=== PATIENT | female | born 1965 | race Caucasian/White ===

== ENCOUNTER 2021-10-26 10:52 | Emergency (ER) | payer OTHER, MEDICAID, SELFPAY ==
[2021-10-26] VITALS (7 sets, daily range): BP systolic 184–190; BP diastolic 84; PULSE 56–71; RESP 13–42; TEMP 36.2; O2SAT 96–97; BMI 27.9
--- NOTE | 2021-10-26 11:23 | DI.RAD.S_ITS ---
PROCEDURE: XR CHEST 1V INDICATIONS: chest pain TECHNIQUE: One view of the chest was acquired. COMPARISON: None. FINDINGS: Surgical changes and devices: An intact appearing herniation priyank can be seen. Lungs and pleura: Lungs are clear. No pleural effusions or pneumothorax. Mediastinum: The cardiac contours are within normal limits. The aorta demonstrates calcification and tortuosity. Bones and chest wall: No suspicious bony lesions. Age-appropriate bony degenerative changes are seen. Overlying soft tissues appear unremarkable. IMPRESSION: No acute cardiopulmonary process is seen. Postoperative and degenerative changes are seen. Dictated by: Zenon Herbert M.D. on 10/26/2021 at 10:40 Approved by: Zenon Herbert M.D. on 10/26/2021 at 10:41
--- NOTE | 2021-10-26 11:30 | ED_ITS ---
HPI - Chest Pain General Chief Complaint: Chest Pain Stated Complaint: blood pressure feels high, hx of heart disease Time Seen by Provider: 10/26/21 11:23 Source: patient Mode of arrival: Ambulatory Limitations: no limitations History of Present Illness HPI narrative: Patient is a 56-year-old female who is here for evaluation of chest discomfort and left arm discomfort. States it has been going on for the past 4 days. Has been consistent for the past 4 days. Not worse with palpation movement or breathing. No coughing. She does have a history of heart failure and high blood pressure. She is on metoprolol. She has been taking her medications as directed. She does have lower extremity swelling with this is not new. Abdominal swelling but this is not new. No changes in her respiratory status. Related Data Allergies Allergy/AdvReac Type Severity Reaction Status Date / Time aspirin Allergy Verified 10/26/21 11:16 Sulfa (Sulfonamide Allergy Verified 10/26/21 11:16 Antibiotics) Review of Systems Constitutional Constitutional: Reports system reviewed and no additional complaints, except as documented Cardiovascular Cardiovascular: Reports as per HPI and Reports system reviewed and no additional complaints, except as documented Respiratory Respiratory: Reports as per HPI and Reports system reviewed and no additional complaints, except as documented Gastrointestinal Gastrointestinal: Reports system reviewed and no additional complaints, except as documented Musculoskeletal Musculoskeletal: Reports system reviewed and no additional complaints, except as documented Integumentary/Breasts Skin/Breast: Reports system reviewed and no additional complaints, except as documented Neurologic Neurologic: Reports system reviewed and no additional complaints, except as documented Hematologic/Lymphatic On Anticoagulants: No Allergic/Immunologic Allergic/Immunologic: Reports system reviewed and no additional complaints, except as documented Patient History Medical History Congestive heart failure Social History Smoking Status: Never smoker Smoking Status: Never smoker Substance Use Type: does not use Exam Initial Vital Signs Initial Vital Signs: Vital Signs Pulse Rate 70 10/26/21 11:09 Blood Pressure 190/84 H 10/26/21 11:09 Pulse Oximetry 96 10/26/21 11:09 HENMT Head: normal to inspection and normocephalic Resp Effort & Inspection: normal respiratory effort Auscultation: clear to auscultation bilaterally Cardio Rate: regular rate Rhythm: regular rhythm GI Inspection: normal to inspection Palpation: soft and No tender Skin General: no rashes or lesions noted Neuro General: patient alert, patient awake and moves all extremities Extrem General: normal to inspection and capillary refill normal Psych Appearance: grossly normal and well kempt Scores HEART Score Heart Score history: Slightly Suspicious Heart Score EKG: Non-Specific repolarization disturbance Heart Score Age: 45-64 years old Heart Score risk factors: 1-2 risk factors Heart Score troponin: < or = to normal limit Heart Score Total: 3 Course Orders Ordered: ED Orders 10/26/21 11:20 Complete Blood Count AUTO DIFF Stat Comprehensive Metabolic Panel Stat Lipase Stat Magnesium Stat NT-proBNP (BNP-Adult 18+) Stat Partial Thromboplastin Time Stat Prothrombin Time INR Stat Troponin & CK Cardiac Panel Stat 10/26/21 11:23 XR chest 1V Stat EKG-12 Lead Stat 10/26/21 11:25 COVID19 -Nasal swab/Pre-Proc Stat Vital Signs Vital signs: Vital Signs - 8 hr 10/26/21 11:09 10/26/21 11:16 10/26/21 11:30 Temperature 97.1 F L Pulse Rate 70 71 61 Respiratory Rate 22 19 Blood Pressure 190/84 H 190/84 H Pulse Oximetry 96 96 96 MDM - Chest Pain Lab Data Attestation: I reviewed the patient's lab results. Result diagrams: 10/26/21 11:20 10/26/21 11:20 Labs: Lab Results 10/26/21 10/26/21 10/26/21 Range/Units 11:20 11:20 11:20 WBC 8.6 (4.5-11.0) X10^3/uL RBC 4.59 (4.0-5.2) X10^6/uL Hgb 11.6 L (12.0-16.0) g/dL Hct 36.0 (36-46) % MCV 78.5 L (80-100) fL MCH 25.3 L (26-34) PG MCHC 32.2 (30-36) % RDW 17.2 H (11.6-14.8) % Plt Count 244 (150-400) X10^3/uL Neut % (Auto) 62.6 (50-75) % Lymph % (Auto) 31.8 (25-40) % [place] % (Auto) 3.5 (3-14) % Eos % (Auto) 1.2 L (2-4) % Baso % (Auto) 0.9 (0-2) % Neut # (Auto) 5400 (6667-3435) /uL Lymph # (Auto) 2700 (5643-3081) /uL [place] # (Auto) 300 (0-900) /uL Eos # (Auto) 100 (0-450) /uL Baso # (Auto) 100 (0-100) /uL Sodium 142 (137-145) mmol/L Potassium 4.5 (3.4-5.1) mmol/L Chloride 109 H (98-107) mmol/L Carbon Dioxide 27 (22-32) mmol/L BUN 13 (7-17) mg/dL Creatinine 0.93 (0.52-1.04) mg/dL Estimated GFR > 60.0 (>60) mL/min BUN/Creatinine Ratio 14.0 (6-22) Glucose 99 (70-100) mg/dL Calcium 9.5 (8.4-10.2) mg/dL Magnesium 2.2 (1.6-2.3) mg/dL Total Bilirubin 0.6 (0.2-1.3) mg/dL AST 23 (14-36) IU/L ALT 11 (<35) IU/L Alkaline Phosphatase 198 H (38-126) U/L Total Creatine Kinase 27 L (30-135) U/L CK-MB (CK-2) TNP CK-MB (CK-2) Rel Index TNP Troponin I < 0.012 (0.01-0.034) ng/mL NT-Pro-B Natriuret Pep 675 H (<125) pg/mL Total Protein 8.3 H (6.3-8.2) g/dL Albumin 4.0 (3.5-5.0) g/dL Globulin 4.3 H (1.7-4.1) g/dL Albumin/Globulin Ratio 0.9 L (1.0-2.8) Lipase 37 (23-300) U/L SARS-CoV-2 (PCR) (Negative) 10/26/21 Range/Units 11:25 WBC (4.5-11.0) X10^3/uL RBC (4.0-5.2) X10^6/uL Hgb (12.0-16.0) g/dL Hct (36-46) % MCV (80-100) fL MCH (26-34) PG MCHC (30-36) % RDW (11.6-14.8) % Plt Count (150-400) X10^3/uL Neut % (Auto) (50-75) % Lymph % (Auto) (25-40) % [place] % (Auto) (3-14) % Eos % (Auto) (2-4) % Baso % (Auto) (0-2) % Neut # (Auto) (3870-0608) /uL Lymph # (Auto) (9658-0137) /uL [place] # (Auto) (0-900) /uL Eos # (Auto) (0-450) /uL Baso # (Auto) (0-100) /uL Sodium (137-145) mmol/L Potassium (3.4-5.1) mmol/L Chloride (98-107) mmol/L Carbon Dioxide (22-32) mmol/L BUN (7-17) mg/dL Creatinine (0.52-1.04) mg/dL Estimated GFR (>60) mL/min BUN/Creatinine Ratio (6-22) Glucose (70-100) mg/dL Calcium (8.4-10.2) mg/dL Magnesium (1.6-2.3) mg/dL Total Bilirubin (0.2-1.3) mg/dL AST (14-36) IU/L ALT (<35) IU/L Alkaline Phosphatase (38-126) U/L Total Creatine Kinase (30-135) U/L CK-MB (CK-2) CK-MB (CK-2) Rel Index Troponin I (0.01-0.034) ng/mL NT-Pro-B Natriuret Pep (<125) pg/mL Total Protein (6.3-8.2) g/dL Albumin (3.5-5.0) g/dL Globulin (1.7-4.1) g/dL Albumin/Globulin Ratio (1.0-2.8) Lipase (23-300) U/L SARS-CoV-2 (PCR) Negative (Negative) Imaging Data Chest x-ray: Radiologist's Impression: [address] [id number] XRay Report Signed Patient: Shilpi Preston MR#: [id number] : 1965 Acct:[id number] Age/Sex: 56 / F Date of Service: 10/26/21 Loc: ED Accession Number: [id number] ?? Procedure: XR chest 1V Ordering Provider: Paul Llamas D.O. PROCEDURE:? XR CHEST 1V ? INDICATIONS:? chest pain ? TECHNIQUE:? One view of the chest was acquired.? ? COMPARISON:? None. ? FINDINGS:? ? Surgical changes and devices:? An intact appearing herniation priyank can be seen. ? Lungs and pleura:? Lungs are clear.? No pleural effusions or pneumothorax.? ? Mediastinum:? The cardiac contours are within normal limits. The aorta demons trates calcification and tortuosity. ? Bones and chest wall:? No suspicious bony lesions.? Age-appropriate bony degenerative changes are seen.? Overlying soft tissues appear unremarkable.? IMPRESSION:? ? No acute cardiopulmonary process is seen.? ? Postoperative and degenerative changes are seen.? ? ? Dictated by: Zenon Herbert M.D. on 10/26/2021 at 10:40 ? ? Approved by: Zenon Herbert M.D. on 10/26/2021 at 10:41 ECG Data Attestation: I personally reviewed and interpreted this ECG as follows: Interpretation: Sinus rhythm Ventricular rate is 66 Normal axis Normal QRS LVH Nonspecific ST T wave changes MDM Narrative Medical decision making narrative: Labs unremarkable. Troponin negative in patient has had symptoms for several days. Chest x-ray is unremarkable. EKG is unremarkable. She is a low risk h eart score. We did discuss taking her blood pressure at home. We discussed contacting her primary doctor to discuss potentially starting medications. She was given return precautions and follow-up instructions. She did expressed understanding. Discharge Plan Departure Patient Disposition: Home Clinical Impression: Atypical chest pain, Hypertension Instructions: Essential Hypertension, DI for Atypical Chest Pain Activity Restrictions/Additional Instructions: I recommend you continue to take all of your medications as directed. Purchase a blood pressure cuff and take your blood pressure at home like we discussed. Take these numbers 2 your primary care doctor to discuss starting any medications. Return to the emergency department for any new or worsening symptoms.
[2021-10-26 11:50] LABS: Add Manual Diff / Slide Review NO; Basophils Absolute Auto 100 /uL (0-100); Basophils Percent Auto 0.9 % (0-2); Eosinophils Absolute Auto 100 /uL (0-450); Eosinophils Percent Auto 1.2 % (2-4); Hemoglobin 11.6 g/dL (12.0-16.0); Lymphocytes Absolute Auto 2700 /uL (1100-4500); Lymphocytes Percent Auto 31.8 % (25-40); Mean Corpuscular HGB Conc 32.2 % (30-36); Mean Corpuscular Hemoglobin 25.3 PG (26-34); Mean Corpuscular Volume 78.5 fL (80-100); Monocytes Absolute Auto 300 /uL (0-900); Monocytes Percent Auto 3.5 % (3-14); Neutrophils Absolute Auto 5400 /uL (1500-7000); Neutrophils Percent Auto 62.6 % (50-75); Platelet Count 244 X10^3/uL (150-400); Red Blood Cell Count 4.59 X10^6/uL (4.0-5.2); Red Cell Distribution Width 17.2 % (11.6-14.8); White Blood Cell Count 8.6 X10^3/uL (4.5-11.0)
[2021-10-26 12:11] LABS: COVID19 -Nasal RAPID Negative (Negative)
[2021-10-26 12:17] LABS: Alanine Aminotransferase 11 IU/L (<35); Albumin Globulin Ratio 0.9 (1.0-2.8); Alkaline Phosphatase 198 U/L (38-126); Aspartate Aminotransferase 23 IU/L (14-36); Bilirubin Total 0.6 mg/dL (0.2-1.3); Blood Urea Nitrogen 13 mg/dL (7-17); Calcium 9.5 mg/dL (8.4-10.2); Carbon Dioxide 27 mmol/L (22-32); Chloride 109 mmol/L (98-107); Creatine Kinase 27 U/L (30-135); Estimated Glomerular Filt Rate > 60.0 mL/min (>60); Globulin 4.3 g/dL (1.7-4.1); Glucose 99 mg/dL (70-100); HEMOLYSIS 23 (0-50); Lipase 37 U/L (23-300); Magnesium 2.2 mg/dL (1.6-2.3); Potassium 4.5 mmol/L (3.4-5.1); Sodium 142 mmol/L (137-145); Total Protein 8.3 g/dL (6.3-8.2)
[2021-10-26 12:29] LABS: Troponin I < 0.012 ng/mL (0.01-0.034)
[2021-10-26 12:50] LABS: NT-proBNP (BNP-Adult 18+) 675 pg/mL (<125)
[2021-10-26 14:55] LABS: INR 1.2 (0.9-1.3); Prothrombin Time 13.6 SECONDS (10.1-12.7)
[2021-10-26 14:58] LABS: PTT Partial Thromboplastin Tim 40 SECONDS (26.4-36.2)
== END 2021-10-26 13:30 | disposition home or self-care (01) ==
PROVIDERS: Emergency Provider Emergency Medicine
DX: R07.89 Other chest pain (principal); I10 Essential (primary) hypertension; Z20.822 Contact with and (suspected) exposure to COVID-19
CPT/HCPCS: 36415; 71045; 80053; 82550; 83690; 83735; 83880; 84484; 85025; 85610; 85730; 87635; 93005; 93010; 99284; C9803

== ENCOUNTER → 2022-01-13 13:39 | Outpatient (CLI) | payer OTHER, MEDICAID, SELFPAY ==
[2022-01-13 16:35] LABS: BUN Creatinine Ratio 15.6 (6-22); Blood Urea Nitrogen 15 mg/dL (7-17); Calcium 8.8 mg/dL (8.4-10.2); Carbon Dioxide 28 mmol/L (22-32); Chloride 105 mmol/L (98-107); Estimated Glomerular Filt Rate 59.7 mL/min (>60); Glucose 93 mg/dL (70-100); HEMOLYSIS < 15 (0-50); Sodium 139 mmol/L (137-145)
== END ==
PROVIDERS: Referring Provider Internal Medicine Cardiovascular Disease; Visit Provider Internal Medicine Cardiovascular Disease
DX: I50.22 Chronic systolic (congestive) heart failure (principal)
CPT/HCPCS: 36415; 80048

== ENCOUNTER → 2022-06-06 15:03 | Outpatient (CLI) | payer OTHER, MEDICAID, SELFPAY ==
--- NOTE | 2022-06-06 | DI.ECHO.S_ITS ---
[facility] +---------+ [facility] +---------+ : : [address] [place] : : : : [id number] : : : : Phone: [phone]+ Echocardiogram Report + + :Name: GERA LOUIS Study Date: 06/06/2022 Height: 66 in : :[facility] ReadingLocation: Weight: 165 lb : : Gender: Female BSA: 1.8 m2 : :: 1965 Age: 56 yrs BP: 119/68 mmHg: :Reason For Study: Mitral Valve- Regurgitation : :Ordering Physician: PHILLIP, : :PAPITO Performed By: Leeroy Scott : :Referring: PAPITO LOPEZ : + + Interpretation Summary 1) Normal left ventricular thickness and size with low normal systolic function (EF 50-55%). 2) Normal right ventricular size and function. 3) No significant valvular abnormalities. 4) No prior Echo available for comparison. Procedure: A two-dimensional transthoracic echocardiogram with color flow and Doppler was performed. The study quality was technically adequate. There is no prior echocardiogram noted for this patient. The patient was in normal sinus rhythm during the exam. Left Ventricle: The left ventricle is normal in size and wall thickness. The ejection fraction is estimated to be 50-55%. Left ventricular systolic function is low normal. There are no focal wall motion abnormalities. Diastolic function could not be accurately assessed due to unobtainable data. Right Ventricle: The right ventricle is normal in size and function. Atria: Both atria are normal in size. The interatrial septum grossly appears intact with no obvious evidence for an atrial septal defect. Mitral Valve: The mitral valve is normal in structure and function. There is trace mitral regurgitation. Aortic Valve: The aortic valve is normal in structure and function. There is no aortic valve stenosis. No aortic regurgitation is present. Tricuspid Valve: The tricuspid valve is normal in structure and function. There is mild tricuspid regurgitation. Pulmonary artery pressures cannot be estimated because of the lack of a measurable TR jet velocity. Pulmonic Valve: The pulmonic valve is normal in structure and function. There is no pulmonic valvular regurgitation. Great Vessels: The aortic root is normal size. The dimensions of the ascending aorta are normal. The IVC is of normal diameter and collapses greater than 50% with a sniff. This suggests a low right atrial pressure of 3 mm Hg. Pericardium/ Pleura There is no pericardial effusion. There is no pleural effusion. MMode/2D Measurements & Calculations LVIDd: 4.8 cm LVOT diam: 2.1 cm LVIDs: 3.6 cm Ao root diam: 2.9 cm FS: 26.2 % asc Aorta Diam: 3.0 cm IVSd: 0.88 cm LVPWd: 0.85 cm LV glynn. diameter/BSA (cm/m^2): 2.6 LV sys. diameter/BSA (cm/m^2): 1.9 LA A2 area: 16.2 cm2 RA long axis: 4.5 cm LA A4 area: 15.3 cm2 RA area: 13.0 cm2 LA length (vol): 5.0 cm RA vol: 31.9 ml LA vol: 42.4 ml RA : 17.3 ml/m2 LA vol index: 23.0 ml/m2 TAPSE: 2.1 cm Doppler Measurements & Calculations Ao V2 max: 109.6 cm/sec LVOT Max Xavier: 74.1 cm/sec Ao V2 mean: 80.8 cm/sec LV V1 max P.2 mmHg Ao max P.8 mmHg LV V1 VTI: 17.9 cm Ao mean P.8 mmHg GUANAKO(I,D): 2.4 cm2 Ao V2 VTI: 26.4 cm GUANAKO(V,D): 2.4 cm2 sev ratio: 0.68 GUANAKO indexed to BSA (cm^2/m^2): 1.3 MV E max xavier: 51.3 cm/sec SV(LVOT): 64.4 ml MV A max xavier: 62.7 cm/sec MV E/A: 0.82 Med Peak E' Xavier: 4.0 cm/sec E/E' med: 12.9 Lat Peak E' Xavier: 8.9 cm/sec E/E' lat: 5.8 E/e' average: 9.4 MV dec time: 0.23 sec Reading Physician:01:30 PM
== END ==
PROVIDERS: Referring Provider Internal Medicine Cardiovascular Disease; Visit Provider Internal Medicine Cardiovascular Disease
DX: I42.8 Other cardiomyopathies (principal); I07.1 Rheumatic tricuspid insufficiency
CPT/HCPCS: 93306

== ENCOUNTER → 2022-07-01 15:55 | Outpatient (CLI) | payer OTHER, MEDICAID, SELFPAY ==
[2022-07-01 17:36] LABS: BUN Creatinine Ratio 18.3 (6-22); Blood Urea Nitrogen 20 mg/dL (7-17); Calcium 9.4 mg/dL (8.4-10.2); Carbon Dioxide 27 mmol/L (22-32); Chloride 105 mmol/L (98-107); Estimated Glomerular Filt Rate 59 mL/min (>60); Glucose 87 mg/dL (70-100); HEMOLYSIS < 15 (0-50); Potassium 4.6 mmol/L (3.4-5.1); Sodium 140 mmol/L (137-145)
== END ==
PROVIDERS: Referring Provider Internal Medicine Cardiovascular Disease; Visit Provider Internal Medicine Cardiovascular Disease
DX: I42.8 Other cardiomyopathies (principal)
CPT/HCPCS: 36415; 80048

== ENCOUNTER 2022-10-01 13:58 | Emergency (ER) | payer OTHER, MEDICAID, SELFPAY ==
[2022-10-01 14:02] VITALS: BP 148/67; PULSE 66; RESP 18; TEMP 36.6; O2SAT 99; BMI 28.2
[2022-10-01 14:34] LABS: Add Manual Diff / Slide Review NO; Basophils Absolute Auto 100 /uL (0-100); Basophils Percent Auto 0.9 % (0-2); Eosinophils Absolute Auto 100 /uL (0-450); Eosinophils Percent Auto 1.1 % (2-4); Hematocrit 42.6 % (36-46); Hemoglobin 13.3 g/dL (12.0-16.0); Lymphocytes Absolute Auto 3000 /uL (1100-4500); Lymphocytes Percent Auto 37.5 % (25-40); Mean Corpuscular HGB Conc 31.2 % (30-36); Mean Corpuscular Hemoglobin 25.6 PG (26-34); Mean Corpuscular Volume 82.2 fL (80-100); Monocytes Absolute Auto 300 /uL (0-900); Monocytes Percent Auto 4.2 % (3-14); Neutrophils Absolute Auto 4500 /uL (1500-7000); Neutrophils Percent Auto 56.3 % (50-75); Platelet Count 300 X10^3/uL (150-400); Red Blood Cell Count 5.18 X10^6/uL (4.0-5.2); Red Cell Distribution Width 16.6 % (11.6-14.8); White Blood Cell Count 8.1 X10^3/uL (4.5-11.0)
[2022-10-01 14:52] LABS: Alanine Aminotransferase 18 IU/L (<35); Albumin 4.4 g/dL (3.5-5.0); Alkaline Phosphatase 250 U/L (38-126); Aspartate Aminotransferase 26 IU/L (14-36); BUN Creatinine Ratio 11.1 (6-22); Bilirubin Total 0.7 mg/dL (0.2-1.3); Blood Urea Nitrogen 11 mg/dL (7-17); Calcium 9.3 mg/dL (8.4-10.2); Carbon Dioxide 26 mmol/L (22-32); Chloride 104 mmol/L (98-107); Estimated Glomerular Filt Rate > 60 mL/min (>60); Globulin 4.5 g/dL (1.7-4.1); Glucose 88 mg/dL (70-100); HEMOLYSIS < 15 (0-50); Lipase 50 U/L (23-300); Potassium 4.4 mmol/L (3.4-5.1); Sodium 140 mmol/L (137-145); Total Protein 8.9 g/dL (6.3-8.2)
[2022-10-01 15:53] VITALS: BP 139/67; O2SAT 97
--- NOTE | 2022-10-01 15:58 | DI.CT.S_ITS ---
PROCEDURE: CT ABDOMEN PELVIS W CON INDICATIONS: RLQ pain TECHNIQUE: After the administration of intravenous contrast, axial sections acquired from the lung bases to the pubic symphysis. Coronal and sagittal reformats were performed. For radiation dose reduction, the following was used: automated exposure control, adjustment of mA and/or kV according to patient size. COMPARISON: None. FINDINGS: Image quality: Excellent. Lung bases: Unremarkable. Heart: No significant findings. ABDOMEN: Liver: Unremarkable. Gallbladder: Surgically absent Biliary ducts: Unremarkable. Pancreas: Unremarkable. Spleen: Marked heterogeneity and masslike appearance of the spleen, measuring 9.4 x 6.1 cm on coronal image 40/3. Suspect possible malignancy. Adrenal Glands: Unremarkable. Kidneys and Ureters: There is marked chronic left hydronephrosis with a thin rim of cortical tissue remaining, consistent with nonfunctioning kidney. The left ureter is markedly dilated to the level of the distal ureter where there is a severe stricture. Right kidney is normal in size, shape, and appearance. No mass or hydronephrosis. Right ureter unremarkable. Stomach and Bowel: Fluid-filled colon suggesting possible gastroenteritis. No dilated loops of bowel. No abnormal wall thickening. Peritoneum: No abnormal intraperitoneal fluid. No free air. Ventral Wall: No hernias. Abdominal Nodes: No retroperitoneal or mesenteric adenopathy by size criteria. Vessels: Aorta and inferior vena cava are normal in size. PELVIS: Pelvic Organs: Uterus is surgically absent.. Bladder: Unremarkable. Pelvic Nodes: No enlarged lymph nodes. Miscellaneous: No hernias are seen. Bones: Bilateral Calvo rods. IMPRESSION: 1. There is marked abnormal appearance of the spleen with a ill-defined heterogeneous masslike lesion measuring 9.4 cm in maximum diameter. Suspect possible malignancy. 2. 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 There is a distal left ureteral stricture, of uncertain etiology. Cannot exclude a transitional cell carcinoma. 3. Findings suggest possible gastroenteritis. Comment: Consider PET-CT. Dictated by: Santi Pond M.D. on 10/01/2022 at 16:21 Approved by: Santi Pond M.D. on 10/01/2022 at 16:29
--- NOTE | 2022-10-01 16:00 | ED_ITS ---
HPI - Abdominal Pain <Joel Canales PA-C - Last Filed: 10/01/22 18:57> General Chief Complaint: Abdominal Pain Stated Complaint: urology problems t-2 sent by [facility] [place] Time Seen by Provider: 10/01/22 15:41 Source: patient Mode of arrival: Ambulatory History of Present Illness HPI narrative: This is a 57-year-old female presents emergency department due to 2 days of right lower quadrant pain and some nausea. Originally seen at the [facility] walk-in clinic where she reported having a ?clean? urine. She was sent here for further evaluation. Denies any vomiting, diarrhea, constipation, or any other concerning signs or symptoms. States that the pain is primarily in her right lower quadrant with some radiation to the periumbilical area. Related Data Allergies Allergy/AdvReac Type Severity Reaction Status Date / Time aspirin Allergy Verified 10/01/22 14:01 Sulfa (Sulfonamide Allergy Verified 10/01/22 14:01 Antibiotics) Review of Systems <LUANNE Moran Last Filed: 10/01/22 18:57> Review of Systems Narrative: GENERAL: Denies chills, fatigue, malaise, fever, sweats. HEENT: Denies sinus pain, ear pain, sore throat, difficulty swallowing, dizziness. RESPIRATORY: Denies dyspnea, cough, wheezing, hemoptysis, sputum. CARDIOVASCULAR: Denies chest pain, palpitations, orthopnea, edema, GASTROINTESTINAL: For his nausea, right lower quadrant abdominal pain : Denies dysuria, frequency, incontinence, hematuria, urinary retention. MUSCULOSKELETAL: denies weakness, joint pain, or bony pain SKIN: Denies rash, skin lesions, or other NEUROLOGIC: Denies weakness, headache, numbness, change in speech, confusion, seizures, incoordination. PSYCHIATRIC: No concerning psychosocial issues. 12 point review of systems is negative except for those stated above Patient History <LUANNE Moran Last Filed: 10/01/22 18:57> Medical History Congestive heart failure Social History Smoking Status: Never smoker Smoking Status: Never smoker Substance Use Type: does not use Exam <LUANNE Moran Last Filed: 10/01/22 18:57> Narrative Exam Narrative: GENERAL: Well-developed patient, in mild distress. HEAD: Atraumatic. Normocephalic. EYES: Pupils equal round and reactive. Extraocular motions intact. No scleral icterus. No injection or drainage. ENT: Nose without bleeding, purulent drainage. Throat without erythema, tonsillar hypertrophy or exudate. Airway patent. NECK: Trachea midline. Non tender CARDIOVASCULAR: Regular rate and rhythm without murmurs, gallops, or rubs. RESPIRATORY: Clear to auscultation. Breath sounds equal bilaterally. No wheezes, rales, or rhonchi. GASTROINTESTINAL: Tenderness palpation to the right lower quadrant, nondistended EXTREMITIES: No edema or joint tenderness. BACK: Nontender without deformity or crepitance. No flank tenderness. NEURO: AOx3. SKIN: No rash or erythema of visible areas Initial Vital Signs Initial Vital Signs: Vital Signs Temperature 97.8 F 10/01/22 14:02 Pulse Rate 66 10/01/22 14:02 Respiratory Rate 18 10/01/22 14:02 Blood Pressure 148/67 H 10/01/22 14:02 Pulse Oximetry 99 10/01/22 14:02 Oxygen Delivery Method 10/01/22 14:02 <Tatyana Parra DO - Last Filed: 10/06/22 07:25> Initial Vital Signs Initial Vital Signs: Vital Signs Temperature 97.8 F 10/01/22 14:02 Pulse Rate 66 10/01/22 14:02 Respiratory Rate 18 10/01/22 14:02 Blood Pressure 148/67 H 10/01/22 14:02 Pulse Oximetry 99 10/01/22 14:02 Oxygen Delivery Method 10/01/22 14:02 Course <Joel Canales PA-C - Last Filed: 10/01/22 18:57> Orders Ordered: ED Orders 10/01/22 14:18 Complete Blood Count AUTO DIFF Stat Comprehensive Metabolic Panel Stat Lipase Stat 10/01/22 15:58 CT abdomen pelvis w con Stat Consultations Consultation #1: Spoke with Dr. Dooley, oncologist, of [facility] concerning the patient who recommended the patient follow-up outpatient. He states that his office will call her to arrange an appointment. Vital Signs Vital signs: Vital Signs - 8 hr 10/01/22 14:02 10/01/22 15:53 10/01/22 15:53 Temperature 97.8 F Pulse Rate 66 Respiratory Rate 18 Blood Pressure 148/67 H 139/67 Pulse Oximetry 99 97 Oxygen Delivery Method Room Air <Tatyana Parra DO - Last Filed: 10/06/22 07:25> Orders Ordered: ED Orders 10/01/22 14:18 Complete Blood Count AUTO DIFF Stat Comprehensive Metabolic Panel Stat Lipase Stat 10/01/22 15:58 CT abdomen pelvis w con Stat Vital Signs Vital signs: Vital Signs - 8 hr 10/01/22 14:02 10/01/22 15:53 10/01/22 15:53 Temperature 97.8 F Pulse Rate 66 Respiratory Rate 18 Blood Pressure 148/67 H 139/67 Pulse Oximetry 99 97 Oxygen Delivery Method Room Air MDM - Abdominal Pain <Joel Canales PA-C - Last Filed: 10/01/22 18:57> Lab Data Result diagrams: 10/01/22 14:18 10/01/22 14:18 Labs: Lab Results 10/01/22 10/01/22 Range/Units 14:18 14:18 WBC 8.1 (4.5-11.0) X10^3/uL RBC 5.18 (4.0-5.2) X10^6/uL Hgb 13.3 (12.0-16.0) g/dL Hct 42.6 (36-46) % MCV 82.2 (80-100) fL MCH 25.6 L (26-34) PG MCHC 31.2 (30-36) % RDW 16.6 H (11.6-14.8) % Plt Count 300 (150-400) X10^3/uL Neut % (Auto) 56.3 (50-75) % Lymph % (Auto) 37.5 (25-40) % [place] % (Auto) 4.2 (3-14) % Eos % (Auto) 1.1 L (2-4) % Baso % (Auto) 0.9 (0-2) % Neut # (Auto) 4500 (5438-3577) /uL Lymph # (Auto) 3000 (1484-8761) /uL [place] # (Auto) 300 (0-900) /uL Eos # (Auto) 100 (0-450) /uL Baso # (Auto) 100 (0-100) /uL Sodium 140 (137-145) mmol/L Potassium 4.4 (3.4-5.1) mmol/L Chloride 104 (98-107) mmol/L Carbon Dioxide 26 (22-32) mmol/L BUN 11 (7-17) mg/dL Creatinine 0.99 (0.52-1.04) mg/dL Estimated GFR > 60 (>60) mL/min BUN/Creatinine Ratio 11.1 (6-22) Glucose 88 (70-100) mg/dL Calcium 9.3 (8.4-10.2) mg/dL Total Bilirubin 0.7 (0.2-1.3) mg/dL AST 26 (14-36) IU/L ALT 18 (<35) IU/L Alkaline Phosphatase 250 H (38-126) U/L Total Protein 8.9 H (6.3-8.2) g/dL Albumin 4.4 (3.5-5.0) g/dL Globulin 4.5 H (1.7-4.1) g/dL Albumin/Globulin Ratio 1.0 (1.0-2.8) Lipase 50 (23-300) U/L Point of care testing: Urine Dip Bedside Urine Glucose Negative Bedside Urine Bilirubin - Negative Bedside Urine Ketone - Negative Urine Specific [place] 1.01 Bedside Urine Occult Blood - Negative Bedside Urine pH 5.5 Bedside Urine Protein - Negative Bedside Urine Urobilinogen - Negative Bedside Urine Nitrite - Negative Bedside Urine Leukocytes - Negative Esterase Imaging Data CT scan - abdomen/pelvis: Radiologist's Impression: [place] [address] CT Scan Report Signed Patient: Shilpi Preston MR#: [id number] : 1965 Acct:[id number] Age/Sex: 57 / F Date of Service: 10/01/22 Loc: ED Accession Number: [id number] ?? Procedure: CT abdomen pelvis w con Ordering Provider: Joel Canales P.A-C PROCEDURE:? CT ABDOMEN PELVIS W CON ? INDICATIONS:? RLQ pain ? TECHNIQUE:? After the administration of intravenous contrast, axial sections acquired from the lung bases to the pubic symphysis.? Coronal and sagittal reformats were performed.? For radiation dose reduction, the following was used:? automated exposure control, adjustment of mA and/or kV according to patient size.? ? COMPARISON:? None. ? FINDINGS:? Image quality:? Excellent.? ? Lung bases:? Unremarkable. Heart:? No significant findings. ? ABDOMEN: Liver:? Unremarkable.? ? Gallbladder:? Surgically absent Biliary ducts:? Unremarkable.? ? Pancreas:? Unremarkable.? ? Spleen:? Marked heterogeneity and masslike appearance of the spleen, measuring 9.4 x 6.1 cm on coronal image 40/3.? Suspect possible malignancy.? ? Adrenal Glands:? Unremarkable.? ? Kidneys and Ureters:? There is marked chronic left hydronephrosis with a thin rim of cortical tissue remaining, consistent with nonfunctioning kidney.? The left ureter is markedly dilated to the level of the distal ureter where there is a severe stricture.? Right kidney is normal in size, shape, and appearance.? No mass or hydronephrosi s.? Right ureter unremarkable. ? Stomach and Bowel:? Fluid-filled colon suggesting possible gastroenteritis.? No dilated loops of bowel.? No abnormal wall thickening. Peritoneum:? No abnormal intraperitoneal fluid.? No free air.? ? Ventral Wall: ? No hernias.? Abdominal Nodes:? No retroperitoneal or mesenteric adenopathy by size criteria.? Vessels:? Aorta and inferior vena cava are normal in size.? ? PELVIS: Pelvic Organs:? Uterus is surgically absent..? ? Bladder:? Unremarkable.? ? Pelvic Nodes: No enlarged lymph nodes.? Miscellaneous: No hernias are seen. ? ? ? Bones:? Bilateral Calvo rods. ? ? IMPRESSION:? ? 1. There is marked abnormal appearance of the spleen with a ill-defined hete rogeneous masslike lesion measuring 9.4 cm in maximum diameter.? Suspect possible malignancy. ? 2. 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 There is a distal left ureteral stricture, of uncertain etiology.? Cannot exclude a transitional cell carcinoma. ? 3. Findings suggest possible gastroenteritis. ? Comment:? Consider PET-CT.? ? ? Dictated by: Santi Pond M.D. on 10/01/2022 at 16:21 ? ? Approved by: Santi Pond M.D. on 10/01/2022 at 16:29 ? [facility] [place] Narrative Medical decision making narrative: This is a 57-year-old female presents to the emergency department with vague complaints of right lower quadrant abdominal pain. Urinalysis showed no evidence of a urinary tract infection. CT scan was ordered which showed a large left-sided splenic mass which the patient was not aware of. This mass was discussed with Dr. Dooley, oncologist, of [place] who stated that there was no need for any kind of admission to the hospital but recommended she follow-up outpatient. He states that his office will call her to arrange an appointment. Lab work showed no significant acute abnormalities that need addressing here in the emergency department. Patient did not have a primary care provider but she was aware of although she states at 1 time she was a patient of [facility] although somewhat vague historian. Patient will follow-up outpatient with Dr. Dooley. <Tatyana Parra, - Last Filed: 10/06/22 07:25> Lab Data Labs: Lab Results 10/01/22 10/01/22 Range/Units 14:18 14:18 WBC 8.1 (4.5-11.0) X10^3/uL RBC 5.18 (4.0-5.2) X10^6/uL Hgb 13.3 (12.0-16.0) g/dL Hct 42.6 (36-46) % MCV 82.2 (80-100) fL MCH 25.6 L (26-34) PG MCHC 31.2 (30-36) % RDW 16.6 H (11.6-14.8) % Plt Count 300 (150-400) X10^3/uL Neut % (Auto) 56.3 (50-75) % Lymph % (Auto) 37.5 (25-40) % [place] % (Auto) 4.2 (3-14) % Eos % (Auto) 1.1 L (2-4) % Baso % (Auto) 0.9 (0-2) % Neut # (Auto) 4500 (4426-9575) /uL Lymph # (Auto) 3000 (3772-5373) /uL [place] # (Auto) 300 (0-900) /uL Eos # (Auto) 100 (0-450) /uL Baso # (Auto) 100 (0-100) /uL Sodium 140 (137-145) mmol/L Potassium 4.4 (3.4-5.1) mmol/L Chloride 104 (98-107) mmol/L Carbon Dioxide 26 (22-32) mmol/L BUN 11 (7-17) mg/dL Creatinine 0.99 (0.52-1.04) mg/dL Estimated GFR > 60 (>60) mL/min BUN/Creatinine Ratio 11.1 (6-22) Glucose 88 (70-100) mg/dL Calcium 9.3 (8.4-10.2) mg/dL Total Bilirubin 0.7 (0.2-1.3) mg/dL AST 26 (14-36) IU/L ALT 18 (<35) IU/L Alkaline Phosphatase 250 H (38-126) U/L Total Protein 8.9 H (6.3-8.2) g/dL Albumin 4.4 (3.5-5.0) g/dL Globulin 4.5 H (1.7-4.1) g/dL Albumin/Globulin Ratio 1.0 (1.0-2.8) Lipase 50 (23-300) U/L Point of care testing: Urine Dip Bedside Urine Glucose Negative Bedside Urine Bilirubin - Negative Bedside Urine Ketone - Negative Urine Specific [place] 1.01 Bedside Urine Occult Blood - Negative Bedside Urine pH 5.5 Bedside Urine Protein - Negative Bedside Urine Urobilinogen - Negative Bedside Urine Nitrite - Negative Bedside Urine Leukocytes - Negative Esterase Discharge Plan Departure Patient Disposition: Home Clinical Impression: Splenic mass Activity Restrictions/Additional Instructions: Thank you for coming to the [facility] Emergency Department today. The CT scan showed evidence of a mass on your spleen that we would like further workup and evaluation. I have spoken with Dr. Dooley an oncologist on [place], who kindly agreed that he will see you in his office will call you for a follow- up appointment. Your urine showed no evidence of a urinary tract infection. Your lab work shows no evidence of an acute infection. Please follow-up with him it seems possible. I also strongly recommend you speak with [facility] to establish with a new primary care provider soon as possible. I hope you feel better soon. Referrals: Tierney Harvey FNP-C [Primary Care Provider] - Visit Report Forms: Patient Portal/API <Tatyana Parra DO - Last Filed: 10/06/22 07:25> Cosign ED Attending Cosignature Attestation: I was immediately available in the department for consultation. Documentation has been reviewed. I agree with assessment and plan.
[2022-10-01 19:01] VITALS: PULSE 64; O2SAT 98
[2022-10-01 19:02] VITALS: BP 177/74; PULSE 64; RESP 20; O2SAT 98
== END 2022-10-01 19:28 | disposition home or self-care (01) ==
PROVIDERS: Emergency Medicine; Emergency Provider Physician Assistant Medical; PCP Registered Nurse
DX: R16.1 Splenomegaly, not elsewhere classified (principal)
CPT/HCPCS: 36415; 74177; 80053; 81003; 83690; 85025; 99284; Q9967

== ENCOUNTER 2023-12-08 11:20 | Emergency (ER) | payer OTHER, MEDICAID, SELFPAY ==
[2023-12-08] VITALS (11 sets, daily range): BP systolic 191–203; BP diastolic 84–88; PULSE 52–67; RESP 17–20; TEMP 36.3; O2SAT 80–98; BMI 29.3
[2023-12-08 12:33] LABS: Add Manual Diff / Slide Review NO; Basophils Absolute Auto 100 /uL (0-100); Basophils Percent Auto 1.1 % (0-2); Eosinophils Absolute Auto 200 /uL (0-450); Eosinophils Percent Auto 2.1 % (2-4); Hematocrit 44.6 % (36-46); Hemoglobin 14.4 g/dL (12.0-16.0); Lymphocytes Absolute Auto 2900 /uL (1100-4500); Lymphocytes Percent Auto 29.1 % (25-40); Mean Corpuscular HGB Conc 32.4 % (30-36); Mean Corpuscular Hemoglobin 27.3 PG (26-34); Mean Corpuscular Volume 84.4 fL (80-100); Monocytes Absolute Auto 700 /uL (0-900); Monocytes Percent Auto 6.9 % (3-14); Neutrophils Absolute Auto 6000 /uL (1500-7000); Neutrophils Percent Auto 60.8 % (50-75); Platelet Count 330 X10^3/uL (150-400); Red Blood Cell Count 5.28 X10^6/uL (4.0-5.2); Red Cell Distribution Width 16.2 % (11.6-14.8); White Blood Cell Count 9.8 X10^3/uL (4.5-11.0)
[2023-12-08 12:39] LABS: Alanine Aminotransferase 31 IU/L (<35); Albumin 4.1 g/dL (3.5-5.0); Alkaline Phosphatase 180 U/L (38-126); Aspartate Aminotransferase 40 IU/L (14-36); BUN Creatinine Ratio 14.6 (6-22); Bilirubin Total 0.7 mg/dL (0.2-1.3); Blood Urea Nitrogen 12 mg/dL (7-17); Calcium 9.4 mg/dL (8.4-10.2); Carbon Dioxide 23 mmol/L (22-32); Chloride 109 mmol/L (98-107); Estimated Glomerular Filt Rate > 60 mL/min (>60); Globulin 4.1 g/dL (1.7-4.1); Glucose 94 mg/dL (80-110); HEMOLYSIS 31 (0-50); Lipase 82 U/L (23-300); Potassium 4.6 mmol/L (3.4-5.1); Sodium 139 mmol/L (137-145); Total Protein 8.2 g/dL (6.3-8.2)
--- NOTE | 2023-12-08 12:49 | DI.CT.S_ITS ---
PROCEDURE: CT CHEST ABD PEL W CON INDICATIONS: h/o splenic mass, now upper abd pain, *wait for labs* TECHNIQUE: After the administration of intravenous contrast, 5 mm thick sections acquired from the lung apices to the symphysis. 5 mm coronal and sagittal reformats were performed, with additional 7 mm MIP reformats through the lungs. For radiation dose reduction, the following was used: automated exposure control, adjustment of mA and/or kV according to patient size. COMPARISON: [facility], [place], PET NECK TO MID THIGH, 10/29/2022, 11:20. [facility], CT, CT ABDOMEN PELVIS W CON, 10/01/2022, 16:04. FINDINGS: Image quality: Diagnostic Lungs and pleura: No dense airspace disease. No pleural effusions. Scattered scarring/atelectasis. Mediastinum, heart, and esophagus: Small hiatal hernia. Normal heart size. No pathologic lymph nodes by size criteria. There are coronary calcifications. Chest wall and thyroid: Unremarkable Liver: Increased conspicuity of a 1.8 cm hypervascular liver lesion. No significant FDG avidity was a previously identified. (). This is stable Gallbladder and biliary system: Absent, nondilated Pancreas: No ductal dilation Spleen: Absent. Small splenule/splenosis Adrenals: Increased small adrenal thickening/nodularity on the left Kidneys: Chronically obstructed left collecting system, with severe cortical thinning. This was seen previously. No right solid renal mass or hydronephrosis. Vessels and lymph nodes: No abdominal aortic aneurysm. No pathologic lymph nodes by size criteria. Bowel and peritoneum: No evidence of small bowel obstruction. Primary liquid colonic contents. There are colonic diverticula. No pathologic abscess or ascites. Mild pericolonic fat stranding is present. The appendix is nondilated. Body wall: Small fat containing umbilical hernia. Pelvis: Bladder is unremarkable. Uterus is absent. Bones: Degenerative findings. Heterogeneous marrow attenuation. Scoliosis fixation hardware is present. IMPRESSION: Suspected colitis. No hemoperitoneum, small-bowel obstruction, or other acute abnormality. Consider age-appropriate colonoscopy correlation if not already performed Stable 1.8 cm hypervascular liver lesion, seen retrospectively, increased in conspicuity likely due to contrast timing today. This may be a focal nodular hyperplasia or other benign or malignant finding. Consider Eovist liver MRI follow-up. Increased nodularity of left adrenal gland compared to 2022 can be evaluated simultaneously. 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 Other findings above Dictated by: Valentino Talamantes M.D. on 12/08/2023 at 13:37 Approved by: Valentino Talamantes M.D. on 12/08/2023 at 13:48
--- NOTE | 2023-12-08 15:21 | ED_ITS ---
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 She has been having nausea but no vomiting. Difficulty eating she reports hot and cold flashes over the last couple of days. Is not complaining of chest pain, palpitations, dyspnea, headache. Related Data Allergies Allergy/AdvReac Type Severity Reaction Status Date / Time Sulfa (Sulfonamide Allergy Anaphylaxis Verified 12/08/23 11:45 Antibiotics) aspirin AdvReac stomach Verified 12/08/23 11:45 ache Review of Systems Review of Systems Narrative: Pertinent positive and negative findings as per HPI Patient History Medical History (Updated 12/08/23 @ 16:08 by Manasa Lugo MD) Congestive heart failure Surgical History (Updated 12/08/23 @ 13:23 by Raven Meyers RN) H/O splenectomy Social History Smoking Status: Never smoker Smoking Status: Never smoker Substance Use Type: does not use Exam Initial Vital Signs Initial Vital Signs: Vital Signs Temperature 97.4 F L 12/08/23 11:45 Pulse Rate 60 12/08/23 11:45 Respiratory Rate 17 12/08/23 11:45 Blood Pressure 203/88 H 12/08/23 11:45 Pulse Oximetry 97 12/08/23 11:45 Oxygen Delivery Method Room Air 12/08/23 11:45 General: Chronically ill appearing, in no acute distress. Able to cooperate with exam HEENT: Moist mucous membranes, normal sclera with reactive pupils, Neck: No JVD, supple Respiratory: Lungs are clear to auscultation, no wheezing no rales no rhonchi. Full and symmetrical air movement Cardiac: Regular rate and rhythm no murmurs no bruits Abdomen: Soft, nontender, mild distention, no rebound or guarding no flank pain Skin: Pale but otherwise Warm and dry, no rashes Neurologic: Antalgic gait, uses a walker but otherwise Grossly neurologically intact with no obvious asymmetries or abnormalities Extremities: No trauma, nonpitting lower extremity edema left greater than right. No calf tenderness no erythema Psych: Cooperative, slightly confused and poor recollection of medical interventions Course Orders Ordered: ED Orders 12/08/23 11:49 EKG-12 Lead Stat 12/08/23 12:20 Complete Blood Count AUTO DIFF Stat Comprehensive Metabolic Panel Stat Lipase Stat 12/08/23 12:49 CT chest abd pel w con Stat Ondansetron HCl (Ondansetron 4 Mg/2 Ml Inj) 4 mg IV NOW PRN PRN Reason: Nausea And Vomiting Ondansetron HCl (Ondansetron 4 Mg Odt) 4 mg PO NOW PRN PRN Reason: Nausea And Vomiting Vital Signs Vital signs: Vital Signs - 8 hr 12/08/23 11:45 12/08/23 12:10 12/08/23 12:30 Temperature 97.4 F L Pulse Rate 60 52 L 53 L Respiratory Rate 17 Blood Pressure 203/88 H Pulse Oximetry 97 98 95 Oxygen Delivery Method Room Air 12/08/23 12:37 12/08/23 12:37 12/08/23 13:18 Temperature Pulse Rate 57 L 66 Respiratory Rate 19 Blood Pressure 191/88 H Pulse Oximetry 98 97 Oxygen Delivery Method Medical Decision Making Lab Data 12/08/23 12:20 12/08/23 12:20 Labs: Lab Results 12/08/23 Range/Units 12:20 WBC 9.8 (4.5-11.0) X10^3/uL RBC 5.28 H (4.0-5.2) X10^6/uL Hgb 14.4 (12.0-16.0) g/dL Hct 44.6 (36-46) % MCV 84.4 (80-100) fL MCH 27.3 (26-34) PG MCHC 32.4 (30-36) % RDW 16.2 H (11.6-14.8) % Plt Count 330 (150-400) X10^3/uL Neut % (Auto) 60.8 (50-75) % Lymph % (Auto) 29.1 (25-40) % Potter % (Auto) 6.9 (3-14) % Eos % (Auto) 2.1 (2-4) % Baso % (Auto) 1.1 (0-2) % Neut # (Auto) 6000 (9349-2886) /uL Lymph # (Auto) 2900 (6304-6450) /uL Potter # (Auto) 700 (0-900) /uL Eos # (Auto) 200 (0-450) /uL Baso # (Auto) 100 (0-100) /uL Sodium 139 (137-145) mmol/L Potassium 4.6 (3.4-5.1) mmol/L Chloride 109 H (98-107) mmol/L Carbon Dioxide 23 (22-32) mmol/L BUN 12 (7-17) mg/dL Creatinine 0.82 (0.52-1.04) mg/dL Estimated GFR > 60 (>60) mL/min BUN/Creatinine Ratio 14.6 (6-22) Glucose 94 (80-110) mg/dL Calcium 9.4 (8.4-10.2) mg/dL Total Bilirubin 0.7 (0.2-1.3) mg/dL AST 40 H (14-36) IU/L ALT 31 (<35) IU/L Alkaline Phosphatase 180 H (38-126) U/L Total Protein 8.2 (6.3-8.2) g/dL Albumin 4.1 (3.5-5.0) g/dL Globulin 4.1 (1.7-4.1) g/dL Albumin/Globulin Ratio 1.0 (1.0-2.8) Lipase 82 (23-300) U/L Urine Dip Bedside Urine Glucose Negative Bedside Urine Bilirubin - Negative Bedside Urine Ketone - Negative Urine Specific [place] 1.020 Bedside Urine Occult Blood - Negative Bedside Urine pH 6.0 Bedside Urine Protein - Negative Bedside Urine Urobilinogen - Negative Bedside Urine Nitrite - Negative Bedside Urine Leukocytes - Negative Esterase Point of care testing: Urine Dip Bedside Urine Glucose Negative Bedside Urine Bilirubin - Negative Bedside Urine Ketone - Negative Urine Specific [place] 1.020 Bedside Urine Occult Blood - Negative Bedside Urine pH 6.0 Bedside Urine Protein - Negative Bedside Urine Urobilinogen - Negative Bedside Urine Nitrite - Negative Bedside Urine Leukocytes - Negative Esterase Imaging Data CT scan - abdomen/pelvis: Radiologist's Impression: PROCEDURE: CT CHEST ABD PEL W CON INDICATIONS: h/o splenic mass, now upper abd pain, *wait for labs* TECHNIQUE: After the administration of intravenous contrast, 5 mm thick sections acquired from the lung apices to the symphysis. 5 mm coronal and sagittal reformats were performed, with additional 7 mm MIP reformats through the lungs. For radiation dose reduction, the following was used: automated exposure control, adjustment of mA and/or kV according to patient size. COMPARISON: [facility], [place], PET NECK TO MID THIGH, 10/29/2022, 11:20. Merged With [facility], CT, CT ABDOMEN PELVIS W CON, 10/01/2022, 16:04. FINDINGS: Image quality: Diagnostic Lungs and pleura: No dense airspace disease. No pleural effusions. Scattered scarring/atelectasis. Mediastinum, heart, and esophagus: Small hiatal hernia. Normal heart size. No pathologic lymph nodes by size criteria. There are coronary calcifications. Chest wall and thyroid: Unremarkable Liver: Increased conspicuity of a 1.8 cm hypervascular liver lesion. No significant FDG avidity was a previously identified. (). This is stable Gallbladder and biliary system: Absent, nondilated Pancreas: No ductal dilation Spleen: Absent. Small splenule/splenosis Adrenals: Increased small adrenal thickening/nodularity on the left Kidneys: Chronically obstructed left collecting system, with severe cortical thinning. This was seen previously. No right solid renal mass or hydronephrosis. Vessels and lymph nodes: No abdominal aortic aneurysm. No pathologic lymph nodes by size criteria. Bowel and peritoneum: No evidence of small bowel obstruction. Primary liquid colonic contents. There are colonic diverticula. No pathologic abscess or ascites. Mild pericolonic fat stranding is present. The appendix is nondilated. Body wall: Small fat containing umbilical hernia. Pelvis: Bladder is unremarkable. Uterus is absent. Bones: Degenerative findings. Heterogeneous marrow attenuation. Scoliosis fixation hardware is present. IMPRESSION: Suspected colitis. No hemoperitoneum, small-bowel obstruction, or other acute abnormality. Consider age-appropriate colonoscopy correlation if not already performed Stable 1.8 cm hypervascular liver lesion, seen retrospectively, increased in conspicuity likely due to contrast timing today. This may be a focal nodular hyperplasia or other benign or malignant finding. Consider [facility] liver MRI follow-up. Increased nodularity of left adrenal gland compared to 2021 can be evaluated simultaneously. 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 Other findings above Dictated by: Valentino Talamantes M.D. on 12/08/2023 at 13:37 MDM Narrative Medical decision making narrative: CC: Upper abdominal pain, bloating and diarrhea Complicating co-morbidities: Cardiomyopathy, congestive heart failure, radicular back pain, chronic lower extremity edema Data collected from: patient who has very little insight into her overall health, timing, dates of procedure such as her splenectomy or medication she is taking. Majority of information is gleaned from [facility] records Medical records reviewed: Notes from [facility] are reviewed and indicate a history of nonischemic cardiomyopathy, congestive heart failure, nonrheumatic mitral valve regurgitation, chronic anemia. 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 Differential considered: Diverticulitis, colitis, bowel obstruction, congestive heart failure Exam documented above, pertinent findings include: No acute distress, memory impairment, mildly distended abdomen without rebound or guarding. Normal bowel tones. Lower extremity edema nonpitting left greater than right which appears to be close to her baseline. Lab Test results independently reviewed as above. Pertinent findings: CBC is unremarkable without leukocytosis no anemia Chemistries are reassuring. Normal renal function. Alk-phos is slightly elevated but decreased from comparison studies Lipase is unremarkable Imaging studies independently reviewed: CT scan of the abdomen suggests colitis without evidence abscess, infection or mass. Treatments: IV Lasix Re-evaluations: Findings reviewed with the patient questions are answered Discussion: 58-year-old woman with abdominal pain and bloating. She has mild colitis with no evidence of infection on CT scan. She does describe diarrhea however it is more loose stool once a day. Certainly nothing that makes me think about Clostridium difficile. She has not been on antibiotics recently. She has not have an acute surgical abdomen. She describes significant lower extremity edema, and she does have chronic nonpitting lower extremity edema. I am going to ask her to double her Lasix for a week. I do not think this is an exacerbation of her heart failure. It is not entirely clear that she has actually been taking her Lasix. Findings reviewed with her, reasons to return to the emergency department including increasing pain, blood mixed in with her stool, worsening diarrhea, chest pain or shortness a breath. Questions are answered and she is safe for discharge Discharge Plan Departure Patient Disposition: Home Clinical Impression: Colitis, Bilateral edema of lower extremity Instructions: DI for Colitis Activity Restrictions/Additional Instructions: Thank you for coming in today Your blood work is actually quite reassuring. I am not seeing any evidence of significant infection or electrolyte abnormalities. It does not look like you are in severe heart failure or having an acute heart attack The CT scan of your abdomen shows colitis. This is inflammation in the colon itself which is why you are feeling bloated and irritated. This usually is self-limited which means you are going to get better without any additional intervention from me. I am going to send you home with some Zofran to help should you have nausea. It is important that you are able to continue to eat and drink. I am also going to suggest that you double your dose of Lasix for the next 7 days. I want you to take 2 of the 20 mg tablets of Lasix that you have at home every morning until December 14. Hopefully this will help reduce some of the swelling in your legs. Keeping your legs elevated and wearing compression stocks will also help. Please make sure that you are continuing to take the 12.5 mg of spironolactone that is also prescribed for you I would encourage you to follow up with your primary care physician to make sure that you are healing completely and to re-evaluate the lower extremity edema. If you find that you are getting worse or develop any new symptoms, please feel free to return to the emergency department for further evaluation. Referrals: Tierney Harvey FNP-[facility] [Primary Care Provider] - Stand Alone Forms: Patient Portal/API
[2023-12-08] MEDS: FUROSEMIDE 40 MG/4 ML VIAL IV (16:13)
== END 2023-12-08 16:23 | disposition home or self-care (01) ==
PROVIDERS: Emergency Provider Emergency Medicine; PCP Registered Nurse
DX: K52.9 Noninfective gastroenteritis and colitis, unspecified (principal); R60.0 Localized edema; R10.9 Unspecified abdominal pain
CPT/HCPCS: 36415; 71260; 74177; 80053; 81003; 83690; 85025; 93005; 96374; 99284; J1940; Q9967